=== PATIENT | male | born 1970 | race Two or more races ===

== ENCOUNTER 2024-10-31 08:53 | Inpatient (IN) | payer OTHER ==
[~2024-10-31] VITALS: Ht 182.9 cm; Wt 121.2 kg
--- NOTE | 2024-10-31 09:06 | ED.PDOC ---
General HPI Comments This is a 54 year old male presenting to the ED with chief complaint of flank pain. Patient reports that he has been experiencing left sided flank pain with associated dysuria since 5am this morning. Patient states he has a previous history of kidney stones. Patient denies any N/V, abdominal pain, dizziness, hematuria, fever, or chills. Time Seen by MD: 09:02 Reviewed notes: Nurses Notes, Medications, Allergies Information Source: Patient Mode of Arrival: Ambulatory Severity: Moderate Timing: Hours Duration: Since onset Prehospital treatment: None Onset: Spontaneous Symptoms: Dysuria History of: Kidney stone Location: (L)Flank Penile discharge: None Modifying factors: None associated signs and symptoms: Flank Pain, Dysuria Past Medical History PAST MEDICAL HISTORY: DM, High Lipids, HTN, Kidney Stones Surgical History (Other): Left knee surgery Family History Family History: Reviewed,noncontributory to illness Social History Smoker: Non-Smoker Alcohol: Denies ETOH Use Drugs: Denies Drug Use Lives In: Home Constitutional: denies: chills, diaphoresis, fatigue, fever, malaise, sweats, weakness, others EENTM: denies: blurred vision, double vision, ear bleeding, ear discharge, ear drainage, ear pain, ear ringing, eye pain, eye redness, hearing loss, mouth pain, mouth swelling, nasal discharge, nose bleeding, nose congestion, nose pain, photophobia, tearing, throat pain, throat swelling, voice changes, others Respiratory: denies: cough, hemoptysis, orthopnea, SOB at rest, shortness of breath, SOB with excertion, stridor, wheezing, others Cardiovascular: denies: chest pain, dizzy spells, diaphoresis, Dyspnea on exertion, edema, irregular heart beat, left arm pain, lightheadedness, palpitations, PND, syncope, others Gastrointestinal: denies: abdomen distended, abdominal pain, blood streaked bowels, constipated, diarrhea, dysphagia, difficulty swallowing, hematemesis, melena, nausea, poor appetite, poor fluid intake, rectal bleeding, rectal pain, vomiting, others Genitourinary: reports: dysuria, flank pain; denies: burning, frequency, hematuria, incontinence, penile discharge, penile sore, pain, testicle pain, testicle swelling, urgency, others Neurological: denies: dizziness, fainting, headache, left sided numbness, left sided weakness, numbness, paresthesia, pre-existing deficit, right sided numbness, right sided weakness, seizure, speech problems, tingling, tremors, weakness, others Musculoskeletal: denies: back pain, gout, joint pain, joint swelling, muscle pain, muscle stiffness, neck pain, others Integumetry: denies: bruises, change in color, change in hair/nails, dryness, laceration, lesions, lumps, rash, wounds, others Allergic/Immunocompromised: denies: Difficulty Healing, Frequent Infections, Hives, Itching, others Hematologic/Lymphatic: denies: anemia, blood clots, easy bleeding, easy bruising, swollen glands, others Endocrine: denies: excessive hunger, excessive sweating, excessive thirst, excessive urination, flushing, intolerance to cold, intolerance to heat, unexplained weight gain, unexplained weight loss, others Psychiatric: denies: anxiety, bipolar disorder, depression, hopeless, panic disorder, schizophrenia, sleepless, suicidal, others All Other Systems: Reviewed and Negative Physical Exam General Appearance: Moderate Distress, Normal HEENT: Normal ENT Inspection, Pharynx Normal, TMs Normal Neck: Full Range of Motion, Non-Tender, Normal, Normal Inspection Respiratory: Chest Non-Tender, Lungs Clear, No Accessory Muscle Use, No Respiratory Distress, Normal Breath Sounds Cardiovascular: No Edema, No JVD, No Murmur, No Gallop, Normal Peripheral Pulses, Regular Rate/Rhythm Breast Exam: Deferred Gastrointestinal: No Organomegaly, Non Tender, No Pulsatile Mass, Normal Bowel Sounds, Soft Genitalia: Deferred Pelvic: Deferred Rectal: Deferred Extremities: No calf tenderness, Normal capillary refill, Normal inspection, Normal range of motion, Non-tender, No pedal edema Musculoskeletal : Apperance: Normal Neurologic: Alert, barrel header II-XII nml as Tested, No Motor Deficits, Normal Affect, Normal Mood, No Sensory Deficits Cerebellar Function: Normal Reflexes: Normal Skin: Dry, Normal Color, Warm Peripheral Pulses: 3+ Radial (R), 3+ Radial (L) Lymphatic: No Adenopathy Was a procedure done? Was a procedure done?: No Differential Diagnosis Kidney stone (Female): N/A Kidney stone (Male): Pyelonephritis, Renal failure, Urinary obstruction, Urolithiasis, Urinary tract infection X-Ray, Labs, Meds, VS Vital Signs Date Time Temp Pulse Resp B/P (MAP) Pulse Ox O2 Delivery O2 Flow Rate FiO2 10/31/24 08:58 98.0 75 18 165/91 (115) 98 98.0 Patient alert. Complaining of left-sided flank pain. Vitals stable. Answering questions. History of kidney stones. Blood pressure elevated Establish intravenous access. Was given fluids. Was given pain medication. Was given Zofran. Was given clonidine for his blood pressure. Explained to the patient. Continue monitoring. Time of 1ST Reevaluation: 10:02 Reevaluation 1ST: Unchanged Patient Education/Counseling: Diagnosis, Treatment Family Education/Counseling: No Family Present Additional Information Previous visits reviewed: None The following tests were ordered, and results were reviewed by me: CBC, BMP, UA Additional Information was gathered from interviewing the following independent historians: None I reviewed and agreed with the following test results read by other providers: None I discussed treatment and results with medical personnel and: patient Comprehensive systems review obtained and negative except for what is stated in the HPI. SEPSIS Sepsis Screen Physician Orders Complete Blood Count (10/31/24 09:02) Urinalysis (10/31/24 09:02) Basic Metabolic Panel (10/31/24 09:02) Sodium Chloride 0.9% (10/31/24 09:15) Sodium Chloride 0.9% (10/31/24 09:15) Ketorolac Injection (Toradol Injection) (10/31/24 09:15) Ondansetron Hcl (Zofran) (10/31/24 09:15) Vital Signs Date Time Temp Pulse Resp B/P (MAP) Pulse Ox O2 Delivery O2 Flow Rate FiO2 10/31/24 08:58 98.0 75 18 165/91 (115) 98 98.0 Departure 1 Departure Time of Disposition: 09:14 Impression: Primary Impression: Acute abdominal pain Additional Impression: Kidney stone Disposition: ADMITTED INPATIENT Admit to: Med Surg Condition: Guarded Critical Care Note Critical Care Time?: No Stability Stability form required: No Heart Score Heart Score: Heart Score Response (Comments) Value History N/A 0 EKG N/A 0 Age N/A 0 Risk Factors N/A 0 Troponin N/A 0 Total 0 I personally scribed for FRANCESCO DIAZ MD ([email or web address]) on 10/31/24 at 09:06. Electronically submitted by Trey Alonzo ([email or web address]). FRANCESCO DIAZ MD Oct 31, 2024 09:06
[2024-10-31] MEDS: SODIUM CHLORIDE 0.9% 1,000 ML IV ONE ×3 (09:45→12:18)
--- NOTE | 2024-10-31 09:47 | DVH ---
CT CT AB PEL WO CON-NO ORAL OR IV INDICATION: stone EXAM DATE: 10/31/2024 09:12 AM COMPARISON: None RADIATION DOSE: CTDIvol: 25 mGy, DLP: 1505 mGy*cm PROCEDURE: Helical CT images were obtained of the abdomen and pelvis without IV contrast Sagittal and coronal reconstructions are provided. ORAL CONTRAST: None. ADDITIONAL IMAGES / REFORMATS: None All C T scans at this medical facility are performed using dose modulation techniques as appropriate to a p erformed exam including the following: Automated exposure control was utilized; adjustment of the MA and/or KV according to patient size; and use of iterative reconstruction technique. FINDINGS: LUNG BASE: Normal. LIVER: Mild hepatic steatosis. GALLBLADDER AND BILIARY TREE: Small gallstones are noted. No intra- or extrahepatic biliary ductal di lation. PANCREAS: Normal. SPLEEN: Normal. BOWEL: Mild colonic diverticulosis. Normal appendix. ADRENALS: Normal. KIDNEYS AND URETER: 5 mm left kidney stone in the proximal ureter with mild left hydronephrosis and p erinephric fat stranding. BLADDER: Normal. REPRODUCTIVE ORGANS: Normal. LYMPH NODES:No lymphadenopathy. PERITONEUM: No ascites or free air. No other fluid collection. VESSELS: Scattered atherosclerotic calcifications are noted. RETROPERITONEUM: Normal. ABDOMINAL WALL: Fat containing left inguinal hernia. BONES: Scattered osseous degenerative changes are noted. IMPRESSION: 5 mm left kidney stone in the proximal ureter with mild left hydronephrosis and perinephric fat stran ding. Cholelithiasis. Hepatic steatosis.
[2024-10-31 10:03] LABS: Hematocrit 46.6 % (41.0-53.0); Hemoglobin 16.1 g/dL (13.5-17.5); Mean Corpuscular Hemoglobin 28.8 pg (28.0-32.0); Mean Corpuscular Volume 83.4 fL (80.0-100.0); Nucleated Red Blood Cells % 0.2 %
[2024-10-31 10:13] LABS: Chloride 105 mmol/L (98-107); Potassium 4.1 mmol/L (3.5-5.1); Sodium 140 mmol/L (136-145)
[2024-10-31 10:14] LABS: Anion Gap 8 (5-15); Carbon Dioxide 27 mmol/L (20-31)
[2024-10-31 10:15] LABS: Calcium 9.5 mg/dL (8.7-10.4)
[2024-10-31 10:19] LABS: BUN/Creatinine Ratio 13.9 (10.0-20.0); Blood Urea Nitrogen 14 mg/dL (9-23)
[2024-10-31 10:21] LABS: Glucose 155 mg/dL (74-106)
[2024-10-31] MEDS: ONDANSETRON HCL 4 MG/2 ML VIAL IV ONE (10:24)
[2024-10-31] MEDS: KETOROLAC TROMETH 30 MG/ML 1ML VIAL IV ONE (10:31)
[2024-10-31 11:46] LABS: Urine Protein, UAD Negative (Negative)
[2024-10-31] MEDS ORDERED: DOCUSATE SOD 100 MG CAP PO PRN (12:00)
[2024-10-31] MEDS ORDERED: ACETAMINOPHEN 325 MG TAB PO PRN (12:00)
[2024-10-31] MEDS ORDERED: ONDANSETRON HCL 4 MG/2 ML VIAL IV PRN (12:00)
[2024-10-31] MEDS ORDERED: KETOROLAC TROMETH 30 MG/ML 1ML VIAL IV PRN (12:00)
[2024-10-31] MEDS ORDERED: ERGO1CAP12 PO (12:02)
[2024-10-31] MEDS ORDERED: METF-372 PO (12:02)
[2024-10-31] MEDS ORDERED: SIMV20TA20 PO (12:02)
[2024-10-31] MEDS ORDERED: INSUINJ37 SC (12:02)
[2024-10-31] MEDS ORDERED: LISI20TA56 PO (12:02)
[2024-10-31] MEDS ORDERED: DEXTROSE (50%) 50ML SYRG IV PRN (12:15)
--- NOTE | 2024-10-31 12:17 | DVHHP2 ---
History of Present Illness Reason for Visit: Flank pain History of Present Illness Chuck Maharaj is a 54-year-old male with past medical history of hypertension, hyperlipidemia, diabetes, and kidney stones, who came to the hospital for left flank pain. Patient states he has been experiencing left flank pain and pelvic pain for the past 3 days. He came to the hospital this morning due to the pain worsening. Patient states he did have kidney stones about 1 year ago and thought that he might be having them again. He states the last time he had kidney stones he did not follow up urology. Cardiovascular: HTN, hyperipidemia Renal/: Other (kidney stones) Endocrine: Diabetes Past Surgical History: Other (left knee) Smoke: No ALCOHOL: occassional Drugs: None Lives: with Family Review of Systems Constitutional: No: Fever, Chills, Sweats, Weakness, Malaise, Other Eyes: No: Pain, Vision change, Conjunctivae inflammation, Eyelid inflammation, Other, Redness ENT: No: Ear pain, Ear discharge, Nose pain, Nose discharge, Nose congestion, Mouth pain, Mouth swelling, Throat pain, Throat swelling, Other Respiratory: No: Cough, Dry, Shortness of breath, SOB with excertion, Wheezing, Hemoptysis, Pleuritic Pain, Sputum, Wheezing, Other Cardiovascular: No: Chest Pain, Palpitations, Orthopnea, Paroxysmal Noc. D yspnea, Edema, Lt Headedness, Other Gastrointestinal: Nausea, Abdominal Pain (pelvic pain); No: Vomiting, Diarrhea, Constipation, Melena, Hematochezia, Other Genitourinary: No Dysuria, No Frequency, No Incontinence, No Hematuria, No Retention, No Other Musculoskeletal: back pain (left flank); No: other, neck pain, shoulder pain, arm pain, hand pain, leg pain, foot pain Skin: No: Rash, Lesions, Jaundice, Bruising, Other Neurological: No: Weakness, Numbness, Incoordination, Change in speech, Confusion, Seizures, Other Allergies: Coded Allergies: NO KNOWN ALLERGIES (Unverified , 10/31/24) Medications Current Medications Medications Dose Ordered Sig/Mariana Route Start Time Stop Time Status Last Admin Dose Admin Acetaminophen/ Hydrocodone Bitart 1 tab Q4HP PRN PO 10/31/24 12:00 UNV Ondansetron HCl 4 mg Q4HP PRN IV 10/31/24 12:00 UNV Docusate Sodium 100 mg BIDPRN PRN PO 10/31/24 12:00 UNV Acetaminophen 650 mg Q6HP PRN PO 10/31/24 12:00 UNV Ketorolac Tromethamine 30 mg Q6HPRN PRN IV 10/31/24 12:00 11/05/24 11:59 UNV Tamsulosin HCl 0.4 mg QPM PO 11/01/24 18:00 UNV Exam Vital Signs Vital Signs Date Time Temp Pulse Resp B/P (MAP) Pulse Ox O2 Delivery O2 Flow Rate FiO2 10/31/24 11:55 97.9 69 16 133/79 (97) 97 97.9 10/31/24 10:02 Room Air General Appearance: Alert, Oriented X3, Cooperative, mild distress HEENT: Atraumatic, PERRLA, Mucous membr. moist/pink Respiratory: Clear to auscultation, Normal air movement Cardiovascular: Regular rate, Normal S1, Normal S2, No murmurs Abdominal: Normal bowel sounds, Other (left flank pain) Extremities: No clubbing, No cyanosis, No edema, Normal pulses, No tenderness/swelling Skin: No rashes, No breakdown, No significant lesion Neuro: Normal gait, Normal speech, Strength at 5/5 X4 ext Psych/Mental Status: Mental status NL, Mood NL Labs/Xrays Labs Test 10/31/24 09:28 10/31/24 09:02 Range/Units White Blood Count 8.0 4.4-10.8 10^3/uL Red Blood Count 5.59 4.5-5.90 10^6/uL Hemoglobin 16.1 13.5-17.5 g/dL Hematocrit 46.6 41.0-53.0 % Mean Corpuscular Volume 83.4 80.0-100.0 fL Mean Corpuscular Hemoglobin 28.8 28.0-32.0 pg Mean Corpuscular Hemoglobin Concent 34.5 32.0-36.0 g/dL Red Cell Distribution Width 13.7 11.8-14.3 % Platelet Count 247 140-450 10^3/uL Mean Platelet Volume 8.4 6.9-10.8 fL Neutrophils (%) (Auto) 69.4 37.0-80.0 % Lymphocytes (%) (Auto) 19.5 10.0-50.0 % Monocytes (%) (Auto) 5.7 0.0-12.0 % Eosinophils (%) (Auto) 4.6 0.0-7.0 % Basophils (%) (Auto) 0.8 0.0-2.0 % Neutrophils # (Auto) 5.5 1.6-8.6 10 ^3/uL Lymphocytes # (Auto) 1.6 0.4-5.4 10 ^3/uL Monocytes # (Auto) 0.5 0-1.3 10 ^3/uL Eosinophils # (Auto) 0.4 0-0.8 10 ^3/uL Basophils # (Auto) 0.1 0-0.2 10 ^3/uL Nucleated Red Blood Cells 0.2 % Sodium Level 140 136-145 mmol/L Potassium Level 4.1 3.5-5.1 mmol/L Chloride Level 105 98-107 mmol/L Carbon Dioxide Level 27 20-31 mmol/L Anion Gap 8 5-15 Blood Urea Nitrogen 14 9-23 mg/dL Creatinine 1.01 0.700-1.30 mg/dL Glomerular Filtration Rate Calc 88 >90 mL/min BUN/Creatinine Ratio 13.9 10.0-20.0 Serum Glucose 155 H 74-106 mg/dL Calcium Level 9.5 8.7-10.4 mg/dL Urine Color Light-yellow Yellow Urine Clarity Clear Clear Urine pH 5.5 5.0-9.0 Urine Specific [place] 1.015 1.001-1.035 Urine Protein Negative Negative Urine Ketones Negative Negative Urine Blood 2+ H Negative /uL Urine Nitrite Negative Negative Urine Bilirubin Negative Negative Urine Urobilinogen Normal Negative mg/dL Urine Leukocyte Esterase Negative Negative /uL Urine RBC 8 0 - 3 /hpf Urine Microscopic WBC 1 0-3 /HPF Urine Squamous Epithelial Cells Few <5 /hpf Urine Bacteria Few H None Seen /hpf Urine Mucus Few None Seen Urine Glucose Normal Normal mg/dL CT CT AB PEL WO CON-NO ORAL OR IV FINDINGS: LUNG BASE: Normal. LIVER: Mild hepatic steatosis. GALLBLADDER AND BILIARY TREE: Small gallstones are noted. No intra- or extrahepatic biliary ductal dilation. PANCREAS: Normal. SPLEEN: Normal. BOWEL: Mild colonic diverticulosis. Normal appendix. ADRENALS: Normal. KIDNEYS AND URETER: 5 mm left kidney stone in the proximal ureter with mild left hydronephrosis and perinephric fat stranding. BLADDER: Normal. REPRODUCTIVE ORGANS: Normal. LYMPH NODES:No lymphadenopathy. PERITONEUM: No ascites or free air. No other fluid collection. VESSELS: Scattered atherosclerotic calcifications are noted. RETROPERITONEUM: Normal. ABDOMINAL WALL: Fat containing left inguinal hernia. BONES: Scattered osseous degenerative changes are noted. IMPRESSION: 5 mm left kidney stone in the proximal ureter with mild left hydronephrosis and perinephric fat stranding. Cholelithiasis. Hepatic steatosis. SEPSIS Sepsis Screen Date sepsis recognized/suspect: Oct 31, 2024 Time Sepsis recognized/suspect: 857 Recent Procedure: No On Antibiotic Therapy: No Respiratory Rate >20: No Heart Rate >90: No Temp<36 C (96.8 F) or >38.3 C: No SBP <90 or MAP <65 mmHG: No New Acute Mental Status Change: No Is the patient on CPAP, BIPAP,: No Physician Orders Sodium Chloride 0.9% (10/31/24 09:15) Ct Ab Pel Wo Con-No Oral Or Iv (10/31/24 09:14) Admit (10/31/24 11:59) Code Status (10/31/24 11:59) 2 Gm Sodium Diet (10/31/24 Lunch) Hydrocodone-Acet 5/325mg Tab ([place] 5/32 (10/31/24 12:00) Ondansetron Hcl (Zofran) (10/31/24 12:00) Docusate Sodium Capsule (Colace Capsule) (10/31/24 12:00) Complete Blood Count (11/01/24 04:00) Comprehensive Metabolic Panel (11/01/24 04:00) Condition: Serious (10/31/24 11:59) Acetaminophen Tablet (Tylenol Tablet) (10/31/24 12:00) Sodium Chloride 0.9% (10/31/24 12:00) Ketorolac Injection (Toradol Injection) (10/31/24 12:00) Tamsulosin Hydrochloride (Flomax) (10/31/24 12:00) Tamsulosin Hydrochloride (Flomax) (11/01/24 18:00) * Urology Consult (10/31/24 12:01) Glucose Blood (Accu-Chek Comfort Curve T (10/31/24 17:00) Bedtime Insulin Scale (10/31/24 22:00) Moderate Insulin Ss (10/31/24 17:00) Dextrose 50% Syringe (10/31/24 12:15) Lisinopril Tablet (Zestril Tablet) (11/01/24 10:00) (Nf) Insulin Glargine (Lantus Solostar) (10/31/24 22:00) (Nf) Simvastatin (10/31/24 22:00) Vital Signs Date Time Temp Pulse Resp B/P (MAP) Pulse Ox O2 Delivery O2 Flow Rate FiO2 10/31/24 11:55 97.9 69 16 133/79 (97) 97 97.9 10/31/24 10:02 73 14 98 Room Air 10/31/24 10:02 97.9 73 14 132/89 (103) 98 97.9 10/31/24 08:58 98.0 75 18 165/91 (115) 98 98.0 Laboratory Tests Test 10/31/24 09:28 White Blood Count 8.0 10^3/uL (4.4-10.8) Medications Medications Dose Ordered Sig/Mariana Route Start Time Stop Time Status Last Admin Dose Admin Ketorolac Tromethamine 30 mg ONCE ONCE IV 10/31/24 09:15 10/31/24 09:16 DC 10/31/24 10:31 30 MG Ondansetron HCl 4 mg ONCE ONCE IV 10/31/24 09:15 10/31/24 09:16 DC 10/31/24 10:24 4 MG Sodium Chloride 1,000 ml @ 150 mls/hr Q6H40M ONCE IV 10/31/24 09:15 10/31/24 15:54 10/31/24 10:24 150 MLS/HR Sodium Chloride 1,000 ml @ 1,000 mls/hr Q1H ONCE IV 10/31/24 09:15 10/31/24 10:14 DC 10/31/24 09:45 1,000 MLS/HR Assessment/Plan Assessment/Plan Assessment: Hydronephrosis, Kidney stones, UTI, Hyperglycemia, Cholelithiasis, Diabetes, Hypertension, Hyperlipidemia, Plan: Admit to Med-Surg, Urology consult, IV hydration, IV antibiotics, Pain management, Start Flomax, Consider IR consult if symptoms worsen, Accu checks Q AC&HS with sliding scale, A1c, Home medications reconciled, Plan discussed with: Patient My Orders Orders - MALVIN MARIE Procedure Category Date Status Time Admit ADMIT 10/31/24 Transmitted 11:59 Code Status CODE 10/31/24 Transmitted 11:59 2 Gm Sodium Diet DIET 10/31/24 Transmitted Lunch Hydrocodone-Acet PHA 10/31/24 Logged 5/325mg Tab ([place] 12:00 Ondansetron Hcl PHA 10/31/24 Logged (Zofran) 12:00 Docusate Sodium PHA 10/31/24 Logged Capsule (Colace 12:00 Complete Blood Count LAB 11/01/24 Verified 04:00 Comprehensive LAB 11/01/24 Verified Metabolic Panel 04:00 Condition: Serious CINDI 10/31/24 In Process 11:59 Acetaminophen Tablet PHA 10/31/24 Logged (Tylenol Tablet) 12:00 Sodium Chloride 0.9% PHA 10/31/24 Logged 12:00 Ketorolac Injection PHA 10/31/24 Logged (Toradol Injection) 12:00 Tamsulosin PHA 10/31/24 Logged Hydrochloride (Flomax) 12:00 Tamsulosin PHA 11/01/24 Logged Hydrochloride (Flomax) 18:00 * Urology Consult CONS 10/31/24 Transmitted 12:01 Glucose Blood PHA 10/31/24 Transmitted (Accu-Chek Comfort 17:00 Bedtime Insulin Scale PHA 10/31/24 Transmitted 22:00 Moderate Insulin Ss PHA 10/31/24 Transmitted 17:00 Dextrose 50% Syringe PHA 10/31/24 Transmitted 12:15 Lisinopril Tablet PHA 11/01/24 Transmitted (Zestril Tablet) 10:00 (Nf) Insulin Glargine PHA 10/31/24 Transmitted (Lantus Solostar) 22:00 (Nf) Simvastatin PHA 10/31/24 Transmitted 22:00 Date of Service: Oct 31, 2024 Billing Provider: MALVIN MARIE Common Visit Codes: [id number] INP/OBS CARE (MOD) MALVIN MARIE Oct 31, 2024 12:17
[2024-10-31] MEDS: TAMSULOSIN HYDROCHLORIDE 0.4 MG CAP PO ONE (12:18)
[2024-10-31] MEDS: cefTRIAXone 1GM/50ML D5W 50 ML IV ONE (12:46)
[2024-10-31 15:15] VITALS: BP 127/93; PULSE 64; RESP 18; TEMP 97.5; O2SAT 97
[2024-10-31 15:45] VITALS: RESP 18
[2024-10-31] MEDS: ACCU-CHEK COMFORT CURVE STRIP VI SCH (16:44)
[2024-10-31] MEDS: InsuLIN REG 1unit/0.01ml Soln (100units/ml) SC SCH ×2 (16:44→21:16)
[2024-10-31 20:00] VITALS: PULSE 81; RESP 18
--- NOTE | 2024-10-31 20:52 | DVHINCON2 ---
Date of service: Oct 31, 2024 Referring Physician Hospitalist Reason for Consultation Left flank pain History of Present Illness 54-year-old male with history of hypertension, hyperlipidemia, diabetes, and kidney stones, who came to the hospital for left flank pain. Patient states he has had left flank pain and pelvic pain for the past 3 days. He came to the hospital this morning due to the pain worsening. Patient reports having kidney stones about 1 year ago which he passes spontaneously and he never followed up with urology. Denies dysuria, hematuria, or previous urologic procedures. Currently the patient is tolerating his diet and is not complaining of any pain stating his pain is controlled. Past Medical History HTN, hyperlipidemia, kidney stones, diabetes Past Surgical History left knee surgery Family History: Diabetes mellitus G8 MOTHER G8 FATHER Hypertension G8 MOTHER G8 FATHER Social History Does not smoke. Drinks on occasion Allergies: Coded Allergies: NO KNOWN ALLERGIES (Unverified , 10/31/24) Home Meds Reported Medications Metformin Hydrochloride (Metformin Hcl) 1,000 Mg Tab, 1 TAB PO BID 10/31/24 Insulin Glargine (Lantus Solostar) 100 Unit/Ml Inj, 18 UNIT SC HS 10/31/24 Simvastatin (Simvastatin) 20 Mg Tab, 1 TAB PO HS 10/31/24 Lisinopril (Lisinopril) 20 Mg Tab, 1 TAB PO DAILY 10/31/24 Ergocalciferol (Vitamin D) 50,000 Unit Cap, 1 CAP PO QWEEKLY 10/31/24 Current Medications Current Medications Medications (Trade) Dose Ordered Sig/Mariana Route PRN Reason Start Time Stop Time Status Last Admin Acetaminophen/ Hydrocodone Bitart (Sadler 5/325MG Tab) 1 tab Q4HP PRN PO MODERATE PAIN (4-6 PAIN SCALE) 10/31/24 12:00 Ondansetron HCl (Zofran) 4 mg Q4HP PRN IV NAUSEA / VOMITING 10/31/24 12:00 Docusate Sodium (Colace Capsule) 100 mg BIDPRN PRN PO FOR CONSTIPATION 10/31/24 12:00 Acetaminophen (Tylenol Tablet) 650 mg Q6HP PRN PO PAIN SCALE 1-3 OR TEMP>100.4 10/31/24 12:00 Ketorolac Tromethamine (Toradol Injection) 30 mg Q6HPRN PRN IV SEVERE PAIN (7-10 PAIN SCALE) 10/31/24 12:00 11/05/24 11:59 Tamsulosin HCl (Flomax) 0.4 mg QPM PO 11/01/24 18:00 Diagnostic Test (Pha) (Accu-Chek Comfort Curve T) 1 strip ACHS 10/31/24 17:00 10/31/24 16:44 Insulin Human Regular (InsuLIN R) HS SC 10/31/24 22:00 Insulin Human Regular (InsuLIN R) AC SC 10/31/24 17:00 Dextrose 50 ml UD PRN IV Blood Sugar LESS THAN 60 10/31/24 12:15 Lisinopril (Zestril Tablet) 20 mg DAILY PO 11/01/24 10:00 Insulin Glargine (Lantus) 18 units HS SC 10/31/24 22:00 Atorvastatin Calcium (Lipitor) 10 mg HS PO 10/31/24 22:00 Ceftriaxone Sodium 50 ml @ 100 mls/hr DAILY@09 IV 11/01/24 09:00 Review of Systems Review of Systems Constitutional: No: Fever, Chills, Sweats, Weakness, Malaise, Other Eyes: No: Pain, Vision change, Conjunctivae inflammation, Eyelid inflammation, Other, Redness ENT: No: Ear pain, Ear discharge, Nose pain, Nose discharge, Nose congestion, Mouth pain, Mouth swelling, Throat pain, Throat swelling, Other Respiratory: No: Cough, Dry, Shortness of breath, SOB with excertion, Wheezing, Hemoptysis, Pleuritic Pain, Sputum, Wheezing, Other Cardiovascular: No: Chest Pain, Palpitations, Orthopnea, Paroxysmal Noc. Dyspnea, Edema, Lt Headedness, Other Gastrointestinal: No Nausea, Vomiting, Abdominal Pain (pelvic pain), Diarrhea, Constipation, Melena, Hematochezia, Other Genitourinary: No Dysuria, No Frequency, No Incontinence, No Hematuria, No Retention, No Other Musculoskeletal: back pain (left flank); No: other, neck pain, shoulder pain, arm pain, hand pain, leg pain, foot pain Skin: No: Rash, Lesions, Jaundice, Bruising, Other Neurological: No: Weakness, Numbness, Incoordination, Change in speech, Confusion, Seizures, Other Allergies: Coded Allergies: NO KNOWN ALLERGIES (Unverified , 10/31/24) Vital Signs Vital Signs Date Time Temp Pulse Resp B/P (MAP) Pulse Ox O2 Delivery O2 Flow Rate FiO2 10/31/24 15:45 18 Room Air* 0 21 10/31/24 15:15 97.5 64 127/93 (104) 97 97.5 Physical Exam Gen: Alert, Oriented X3, Cooperative, in no acute distress HEENT: Mucous membrane moist and pink Lungs: Clear to auscultation, Normal air movement Cardio: Regular rate and rhythm, No murmurs Abd: Soft, nondistended. No rebound or guarding. Mild left CVA tenderness. No suprapubic tenderness/fullness : No scrotal swelling or tenderness. Bladder not palpable Skin: Warm, dry, No rash CT CT AB PEL WO CON-NO ORAL OR IV FINDINGS: LUNG BASE: Normal. LIVER: Mild hepatic steatosis. GALLBLADDER AND BILIARY TREE: Small gallstones are noted. No intra- or extrahepatic biliary ductal dilation. PANCREAS: Normal. SPLEEN: Normal. BOWEL: Mild colonic diverticulosis. Normal appendix. ADRENALS: Normal. KIDNEYS AND URETER: 5 mm left kidney stone in the proximal ureter with mild left hydronephrosis and perinephric fat stranding. BLADDER: Normal. REPRODUCTIVE ORGANS: Normal. LYMPH NODES:No lymphadenopathy. PERITONEUM: No ascites or free air. No other fluid collection. VESSELS: Scattered atherosclerotic calcifications are noted. RETROPERITONEUM: Normal. ABDOMINAL WALL: Fat containing left inguinal hernia. BONES: Scattered osseous degenerative changes are noted. IMPRESSION: 5 mm left kidney stone in the proximal ureter with mild left hydronephrosis and perinephric fat stranding. Cholelithiasis. Hepatic steatosis. Labs/Diagnostic Data Labs Test 10/31/24 16:33 10/31/24 09:28 10/31/24 09:02 Range/Units POC Glucose 126 H 70-106 mg/dl White Blood Count 8.0 4.4-10.8 10^3/uL Red Blood Count 5.59 4.5-5.90 10^6/uL Hemoglobin 16.1 13.5-17.5 g/dL Hematocrit 46.6 41.0-53.0 % Mean Corpuscular Volume 83.4 80.0-100.0 fL Mean Corpuscular Hemoglobin 28.8 28.0-32.0 pg Mean Corpuscular Hemoglobin Concent 34.5 32.0-36.0 g/dL Red Cell Distribution Width 13.7 11.8-14.3 % Platelet Count 247 140-450 10^3/uL Mean Platelet Volume 8.4 6.9-10.8 fL Neutrophils (%) (Auto) 69.4 37.0-80.0 % Lymphocytes (%) (Auto) 19.5 10.0-50.0 % Monocytes (%) (Auto) 5.7 0.0-12.0 % Eosinophils (%) (Auto) 4.6 0.0-7.0 % Basophils (%) (Auto) 0.8 0.0-2.0 % Neutrophils # (Auto) 5.5 1.6-8.6 10 ^3/uL Lymphocytes # (Auto) 1.6 0.4-5.4 10 ^3/uL Monocytes # (Auto) 0.5 0-1.3 10 ^3/uL Eosinophils # (Auto) 0.4 0-0.8 10 ^3/uL Basophils # (Auto) 0.1 0-0.2 10 ^3/uL Nucleated Red Blood Cells 0.2 % Sodium Level 140 136-145 mmol/L Potassium Level 4.1 3.5-5.1 mmol/L Chloride Level 105 98-107 mmol/L Carbon Dioxide Level 27 20-31 mmol/L Anion Gap 8 5-15 Blood Urea Nitrogen 14 9-23 mg/dL Creatinine 1.01 0.700-1.30 mg/dL Glomerular Filtration Rate Calc 88 >90 mL/min BUN/Creatinine Ratio 13.9 10.0-20.0 Serum Glucose 155 H 74-106 mg/dL Calcium Level 9.5 8.7-10.4 mg/dL Urine Color Light-yellow Yellow Urine Clarity Clear Clear Urine pH 5.5 5.0-9.0 Urine Specific [place] 1.015 1.001-1.035 Urine Protein Negative Negative Urine Ketones Negative Negative Urine Blood 2+ H Negative /uL Urine Nitrite Negative Negative Urine Bilirubin Negative Negative Urine Urobilinogen Normal Negative mg/dL Urine Leukocyte Esterase Negative Negative /uL Urine RBC 8 0 - 3 /hpf Urine Microscopic WBC 1 0-3 /HPF Urine Squamous Epithelial Cells Few <5 /hpf Urine Bacteria Few H None Seen /hpf Urine Mucus Few None Seen Urine Glucose Normal Normal mg/dL Assessment 5 mm left proximal ureter stone with associate mild hydronephrosis Patient is hemodynamically stable, afebrile, with pain controlled and no signs of infections. Renal function is preserved No urologic emergency at this time Problems(with codes): (1) Hydronephrosis (2) Acute abdominal pain (3) Kidney stone Plan/Recommendation Continue expulsive therapy: Tamsulosin 0.4 mg PO daily for 7-14 days Maintain adequate oral hydration. Continue oral pain management as needed (NSAIDS or acetaminophen) Strain urine at home and bring in stone if passed. Monitor for worsening symptoms (fever, vomiting, uncontrolled pain, anuria) Outpatient urology follow-up in 1-2 weeks for possible URSLL if stone not passed. Medically stable for d/c home once tolerating oral intake and pain is well controlled. Plan discussed with: Patient DRAGAN VALERIO [employer] Oct 31, 2024 20:52
[2024-10-31 21:00] VITALS: BP 124/83; PULSE 80; RESP 19; TEMP 97.9; O2SAT 96
[2024-10-31] MEDS: INSULIN LANTUS (GLARGINE) 1 /0.01ml (100units/ml) SC SCH (21:23)
[2024-10-31] MEDS: ATORVASTATIN 20 MG TAB PO SCH (21:27)
[2024-10-31] MEDS: HYDROcodone-ACET 5/325MG TAB PO PRN (21:50)
[2024-11-01] VITALS (7 sets, daily range): BP systolic 123–141; BP diastolic 71–95; PULSE 73–81; RESP 17–20; TEMP 97.5–98.1; O2SAT 95–97
[2024-11-01 07:24] LABS: Hematocrit 39.1 % (41.0-53.0); Hemoglobin 13.7 g/dL (13.5-17.5); Mean Corpuscular Hemoglobin 29.2 pg (28.0-32.0); Mean Corpuscular Volume 83.6 fL (80.0-100.0); Nucleated Red Blood Cells % 0.0 %
[2024-11-01 07:35] LABS: Alanine Aminotransferase 14 U/L (7-40); Albumin 3.9 g/dL (3.2-4.8); Alkaline Phosphatase 53 U/L (46-116); Anion Gap 9 (5-15); BUN/Creatinine Ratio 13.8 (10.0-20.0); Blood Urea Nitrogen 12 mg/dL (9-23); Calcium 9.0 mg/dL (8.7-10.4); Carbon Dioxide 26 mmol/L (20-31); Chloride 106 mmol/L (98-107); Glucose 106 mg/dL (74-106); Potassium 3.8 mmol/L (3.5-5.1); Sodium 141 mmol/L (136-145); Total Protein 6.0 g/dL (5.7-8.2)
[2024-11-01 07:36] LABS: Bilirubin, Total 0.8 mg/dL (0.2-1.0)
[2024-11-01] MEDS: cefTRIAXone 1GM/50ML D5W 50 ML IV SCH (08:10)
[2024-11-01] MEDS: LISINOPRIL 20 MG TAB PO SCH (08:12)
--- NOTE | 2024-11-01 12:36 | DVH ---
US KIDNEY HISTORY: hydronephrosis COMPARISON: None TECHNIQUE: Transverse and longitudinal grayscale and color doppler images were obtained of the kidney s and bladder. FINDINGS: Right kidney: Size: 14.6 cm Cortical thickness: Normal Echogenicity: Normal Stones: None Masses: None Hydronephrosis: None Ureters: Not well visualized. Other: None Left kidney: Size: 13.5 cm Cortical thickness: Normal Echogenicity: Normal Stones: None Masses: None Hydronephrosis: Yes Ureters: Not well visualized. Other: None Bladder: Normal Other: None. IMPRESSION: Trace left hydronephrosis . Bilateral ureteral jets are visualized.
--- NOTE | 2024-11-01 12:43 | DVH ---
Exam: XY KUB ABDOMEN SINGLE VIEW Indication: stone Comparison: None Technique: 2 radiographic views of the abdomen. Findings: Nonobstructive bowel gas pattern noted. Moderate volume colonic stool. There is no definite evidence for pneumoperitoneum. No abnormal calcifications noted. Impression: Nonobstructive bowel gas pattern noted. Moderate volume colonic stool.
[2024-11-01] MEDS: TAMSULOSIN HYDROCHLORIDE 0.4 MG CAP PO SCH (17:36)
--- NOTE | 2024-11-01 18:11 | DVHPN2 ---
Subjective I am assuming the care of the patient from today onwards who was under the care of the hospitalist team. Patient is still complaining of left-sided flank pain. Changes from previous H/P or p: No Changes Eyes: No Pain, No Vision change, No Conjunctivae inflammation, No Eyelid inflammation, No Other, No Redness ENT: No Ear pain, No Ear discharge, No Nose pain, No Nose discharge, No Nose congestion, No Mouth pain, No Mouth swelling, No Throat pain, No Throat swelling, No Other Cardiovascular: No Chest Pain, No Palpitations, No Orthopnea, No Paroxysmal Noc. Dyspnea, No Edema, No Lt Headedness, No Other Respiratory: No Cough, No Dry, No Shortness of breath, No SOB with excertion, No Wheezing, No Hemoptysis, No Pleuritic Pain, No Sputum, No Other Gastrointestinal: Nausea; No Vomiting; Abdominal Pain (pelvic pain); No Diarrhea, No Constipation, No Melena, No Hematochezia, No Other Genitourinary: No Dysuria, No Frequency, No Incontinence, No Hematuria, No Retention, No Other Musculoskeletal: No other, No neck pain, No shoulder pain, No arm pain; back pain (left flank); No hand pain, No leg pain, No foot pain Skin: No Rash, No Lesions, No Jaundice, No Bruising, No Other Objective Vitals Vital Signs Date Time Temp Pulse Resp B/P (MAP) Pulse Ox O2 Delivery O2 Flow Rate FiO2 11/01/24 17:00 98.1 74 17 128/85 (99) 95 98.1 11/01/24 08:00 Room Air* 0 21 Intake/Output Intake and Output 11/01/24 07:00 Intake Total 3000 ml Output Total 470 ml Balance 2530 ml Intake Oral 950 ml IV Total 2050 ml Output Urine Total 470 ml # Voids 3 Exam HEENT pupils are reactive Neck is supple CV is S1-S2 regular rate and rhythm Respiratory diminished breath sounds bases GI positive bowel sound Extremity no edema 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 Medications Current Medications Medications Dose Ordered Sig/Mariana Route Start Time Stop Time Status Last Admin Dose Admin Acetaminophen/ Hydrocodone Bitart 1 tab Q4HP PRN PO 10/31/24 12:00 10/31/24 21:50 1 TAB Ondansetron HCl 4 mg Q4HP PRN IV 10/31/24 12:00 Docusate Sodium 100 mg BIDPRN PRN PO 10/31/24 12:00 Acetaminophen 650 mg Q6HP PRN PO 10/31/24 12:00 Ketorolac Tromethamine 30 mg Q6HPRN PRN IV 10/31/24 12:00 11/05/24 11:59 Tamsulosin HCl 0.4 mg QPM PO 11/01/24 18:00 11/01/24 17:36 0.4 MG Diagnostic Test (Pha) 1 strip ACHS 10/31/24 17:00 11/01/24 17:15 1 STRIP Insulin Human Regular HS SC 10/31/24 22:00 10/31/24 21:16 4 UNITS Insulin Human Regular AC SC 10/31/24 17:00 Dextrose 50 ml UD PRN IV 10/31/24 12:15 Lisinopril 20 mg DAILY PO 11/01/24 10:00 11/01/24 08:12 20 MG Insulin Glargine 18 units HS SC 10/31/24 22:00 10/31/24 21:23 18 UNITS Atorvastatin Calcium 10 mg HS PO 10/31/24 22:00 Ceftriaxone Sodium 50 ml @ 100 mls/hr DAILY@09 IV 11/01/24 09:00 11/01/24 08:10 100 MLS/HR Laboratory Results Laboratory Tests 11/01/24 05:13 Chemistry Test 11/01/24 05:13 Albumin 3.9 g/dL (3.2-4.8) Calcium Level 9.0 mg/dL (8.7-10.4) Total Protein 6.0 g/dL (5.7-8.2) LFT Test 11/01/24 05:13 Alanine Aminotransferase (ALT) 14 U/L (7-40) Alkaline Phosphatase 53 U/L (46-116) Aspartate Amino Transferase (AST) 14 U/L (13-40) Total Bilirubin 0.8 mg/dL (0.2-1.0) HgA1c, TSH Test 11/01/24 05:13 Hemoglobin A1c 6.6 % A1C (<5.7) H Urinalysis Test 10/31/24 09:02 Urine Color Light-yellow (Yellow) Urine Clarity Clear (Clear) Urine pH 5.5 (5.0-9.0) Urine Specific [place] 1.015 (1.001-1.035) Urine Protein Negative (Negative) Urine Ketones Negative (Negative) Urine Blood 2+ /uL (Negative) H Urine Nitrite Negative (Negative) Urine Bilirubin Negative (Negative) Urine Urobilinogen Normal mg/dL (Negative) Urine Leukocyte Esterase Negative /uL (Negative) Urine RBC 8 /hpf (0 - 3) Urine Microscopic WBC 1 /HPF (0-3) Urine Squamous Epithelial Cells Few /hpf (<5) Urine Bacteria Few /hpf (None Seen) H Urine Mucus Few (None Seen) Urine Glucose Normal mg/dL (Normal) Assessment/Plan Assessment/Plan 54-year-old male with a known history of insulin-dependent diabetes mellitus type 2, hypertension, dyslipidemia initially presented to the hospital with a left-sided flank pain found to have 1. Left obstructive uropathy with a left ureteric stone 2. Left flank pain secondary to 1. 3. Insulin-dependent diabetes mellitus type 2 4. Hypertension 5. Dyslipidemia -continue IV hydration, strain the urine, continue tamsulosin, Urology follow up. Plan discussed with: Patient, Spouse Date of Service: Nov 01, 2024 Billing Provider: EMI MCGUIRE MD Common Visit Codes: [id number] INP/OBS CARE(MOD) EMI MCGUIRE MD Nov 01, 2024 18:11
[2024-11-02 01:00] VITALS: BP 125/80; PULSE 64; RESP 16; TEMP 97.8; O2SAT 95
[2024-11-02 05:00] VITALS: BP 132/91; PULSE 72; RESP 16; TEMP 97.7; O2SAT 96
[2024-11-02 08:00] VITALS: PULSE 66; RESP 18
[2024-11-02 09:30] VITALS: BP 119/78; PULSE 66; RESP 20; TEMP 98.6; O2SAT 97
[2024-11-02 12:30] VITALS: BP 126/81; PULSE 69; RESP 20; TEMP 98.3; O2SAT 97
[2024-11-02] MEDS ORDERED: AUG875T PO (14:48)
[2024-11-02] MEDS ORDERED: TAMS-35 PO (14:48)
[2024-11-02] MEDS ORDERED: HYDR-4902 PO (14:48)
--- NOTE | 2024-11-02 14:52 | DVHDS2 ---
Discharge Summary Date of Admission Oct 31, 2024 at 11:59 Date of Discharge: Nov 02, 2024 Labs/Diagnostic Data: Laboratory Results Test 11/02/24 11:27 11/01/24 05:13 10/31/24 09:02 POC Glucose 208 mg/dl (70-106) White Blood Count 7.6 10^3/uL (4.4-10.8) Red Blood Count 4.68 10^6/uL (4.5-5.90) Hemoglobin 13.7 g/dL (13.5-17.5) Hematocrit 39.1 % (41.0-53.0) Mean Corpuscular Volume 83.6 fL (80.0-100.0) Mean Corpuscular Hemoglobin 29.2 pg (28.0-32.0) Mean Corpuscular Hemoglobin Concent 34.9 g/dL (32.0-36.0) Red Cell Distribution Width 13.6 % (11.8-14.3) Platelet Count 209 10^3/uL (140-450) Mean Platelet Volume 8.3 fL (6.9-10.8) Neutrophils (%) (Auto) 56.3 % (37.0-80.0) Lymphocytes (%) (Auto) 30.6 % (10.0-50.0) Monocytes (%) (Auto) 5.5 % (0.0-12.0) Eosinophils (%) (Auto) 6.7 % (0.0-7.0) Basophils (%) (Auto) 0.9 % (0.0-2.0) Neutrophils # (Auto) 4.3 10 ^3/uL (1.6-8.6) Lymphocytes # (Auto) 2.3 10 ^3/uL (0.4-5.4) Monocytes # (Auto) 0.4 10 ^3/uL (0-1.3) Eosinophils # (Auto) 0.5 10 ^3/uL (0-0.8) Basophils # (Auto) 0.1 10 ^3/uL (0-0.2) Nucleated Red Blood Cells 0.0 % Sodium Level 141 mmol/L (136-145) Potassium Level 3.8 mmol/L (3.5-5.1) Chloride Level 106 mmol/L (98-107) Carbon Dioxide Level 26 mmol/L (20-31) Anion Gap 9 (5-15) Blood Urea Nitrogen 12 mg/dL (9-23) Creatinine 0.87 mg/dL (0.700-1.30) Glomerular Filtration Rate Calc 102 mL/min (>90) BUN/Creatinine Ratio 13.8 (10.0-20.0) Serum Glucose 106 mg/dL (74-106) Hemoglobin A1c 6.6 % A1C (<5.7) Calcium Level 9.0 mg/dL (8.7-10.4) Total Bilirubin 0.8 mg/dL (0.2-1.0) Aspartate Amino Transferase (AST) 14 U/L (13-40) Alanine Aminotransferase (ALT) 14 U/L (7-40) Alkaline Phosphatase 53 U/L (46-116) Total Protein 6.0 g/dL (5.7-8.2) Albumin 3.9 g/dL (3.2-4.8) Urine Color Light-yellow (Yellow) Urine Clarity Clear (Clear) Urine pH 5.5 (5.0-9.0) Urine Specific [place] 1.015 (1.001-1.035) Urine Protein Negative (Negative) Urine Ketones Negative (Negative) Urine Blood 2+ /uL (Negative) Urine Nitrite Negative (Negative) Urine Bilirubin Negative (Negative) Urine Urobilinogen Normal mg/dL (Negative) Urine Leukocyte Esterase Negative /uL (Negative) Urine RBC 8 /hpf (0 - 3) Urine Microscopic WBC 1 /HPF (0-3) Urine Squamous Epithelial Cells Few /hpf (<5) Urine Bacteria Few /hpf (None Seen) Urine Mucus Few (None Seen) Urine Glucose Normal mg/dL (Normal) Other Laboratory Tests 11/01/24 05:13 Brief Hx & Hospital Course: 54-year-old male with a known history of insulin-dependent diabetes mellitus type 2, hypertension, dyslipidemia initially presented to the hospital with a left-sided flank pain found to have left obstructive uropathy with a left ureteric stone. Patient was started on IV hydration colostomy, aggressive hydration, Flomax. Urology was consulted patient was recommended to follow up as an outpatient for lithotripsy. Currently patient's pain is improved hand is requesting to go home. Patient is being discharged under stable condition. Condition at Discharge: Stable Final Diagnosis/Problems List 54-year-old male with a known history of insulin-dependent diabetes mellitus type 2, hypertension, dyslipidemia initially presented to the hospital with a left-sided flank pain found to have 1. Left obstructive uropathy with a left ureteric stone 2. Left flank pain secondary to 1. 3. Insulin-dependent diabetes mellitus type 2 4. Hypertension 5. Dyslipidemia -continue IV hydration, strain t Discharge Disposition: Home SNF Discharge Will this Physician continue t: No Discharge Instruct/Medications Diet: Cardiac 2g Na,low cholest Diet comment: 1800 ADA diet Activity: See Comment Activity comment: No driving, no signing legal documents, no playing on machinery while on narcotics. Follow Up/Referral: . Follow up with the PCP in 1-2 weeks Follow up with the Urology Aleksandr Patel in 1-2 weeks Medications: Augmentin, Dawn, Flomax as prescribed. Scheduled Amoxicillin & Pot Clavulanate (Augmentin Tablet), 875 MG PO BID Ergocalciferol (Vitamin D), 1 CAP PO QWEEKLY, (Reported) Insulin Glargine (Lantus Solostar), 18 UNIT SC HS, (Reported) Lisinopril (Lisinopril), 1 TAB PO DAILY, (Reported) Metformin Hydrochloride (Metformin Hcl), 1 TAB PO BID, (Reported) Simvastatin (Simvastatin), 1 TAB PO HS, (Reported) Tamsulosin Hcl (Flomax), 1 CAP PO DAILY Scheduled PRN Hydrocodone-Acetaminophen (Hydrocodone Bitartrate/AC 5-325 mg), 1 TAB PO Q8HP PRN Discharge Statement: "Patient was advised to return to the ER or call 911 if any headaches, dizziness, shortness of breath, chest pain, abdominal pain, bleeding, fevers, or worsening of medical condition. Patient was counseled about treatment plan, medications, possible side effects, patientverbalized understanding. All questions were answered to the best of my ability. This discharge took greater then 30 minutes in planning, reviewing documentation, counseling the patient, and discussing with other team members." ASSESSMENT ASSESSMENT Assessment 54-year-old male with a known history of insulin-dependent diabetes mellitus type 2, hypertension, dyslipidemia initially presented to the hospital with a left-sided flank pain found to have 1. Left obstructive uropathy with a left ureteric stone 2. Left flank pain secondary to 1. 3. Insulin-dependent diabetes mellitus type 2 4. Hypertension 5. Dyslipidemia -continue IV hydration, strain t Date of Service: Nov 02, 2024 Billing Provider: EMI MCGUIRE MD Common Visit Codes: [id number] DISCH DAY >30min EMI MCGUIRE MD Nov 02, 2024 14:52
[2024-11-02 18:04] VITALS: BP 120/80; PULSE 68; RESP 20; TEMP 98; O2SAT 97
== END 2024-11-02 19:07 | disposition home or self-care (01) | DRG 690 ==
LOC: ER 08:57 → OVERFLOW 11:59 → EAST 15:29
PROVIDERS: ADMIT Nurse Practitioner Family; ATTEND Nurse Practitioner Family
DX: N13.6 Pyonephrosis (principal); N20.2 Calculus of kidney with calculus of ureter; K80.20 Calculus of gallbladder without cholecystitis without obstruction; E78.5 Hyperlipidemia, unspecified; E11.65 Type 2 diabetes mellitus with hyperglycemia; K76.0 Fatty (change of) liver, not elsewhere classified; I10 Essential (primary) hypertension; Z83.3 Family history of diabetes mellitus; Z82.49 Family history of ischemic heart disease and other diseases of the circulatory system; Z79.899 Other long term (current) drug therapy; Z79.4 Long term (current) use of insulin; Z93.3 Colostomy status
CPT/HCPCS: 36415; 74018; 74176; 76775; 80048; 80053; 81001; 82962; 83036; 85025; 96361; 96374; 96375; G0378; J1815; J1885; J2405